=== PATIENT | male | born 1995 | race Two or more races ===

== ENCOUNTER 2025-08-09 16:51 | Emergency (ER) | payer SELFPAY ==
[~2025-08-09] VITALS: Ht 175.3 cm; Wt 72.6 kg
[2025-08-09 16:59] VITALS: TEMP 98.2
[2025-08-09] MEDS ORDERED: LIDOCAINE 1% INJ 50 ML MDV IJ ONE (17:13)
[2025-08-09] MEDS: BACI/NEOM/POLY B OINT PKT 1 UDPKT PACKET TP ONE (18:05)
[2025-08-09] MEDS: LIDOCAINE HCL/PF 1% 30 ML VIAL TP ONE (18:05)
[2025-08-09] MEDS ORDERED: TDAP [DIPH/PERTUSSIS/TET] 0.5 ML VIAL IM ONE (18:10)
[2025-08-09] MEDS ORDERED: CEPH-570 PO (18:13)
[2025-08-09] MEDS ORDERED: IBUP-1490 PO (18:13)
[2025-08-09] MEDS: TDAP [DIPH/PERTUSSIS/TET] 0.5 ML VIAL IM ONE (18:16)
[2025-08-09 18:37] VITALS: BP 125/64; O2SAT 97
== END 2025-08-09 18:37 | disposition home or self-care (01) ==
LOC: ER 16:56
DX: S61.412A Laceration without foreign body of left hand, initial encounter (principal); W26.9XXA Contact with unspecified sharp object(s), initial encounter; Y93.89 Activity, other specified; Y92.89 Other specified places as the place of occurrence of the external cause; Y99.8 Other external cause status
CPT/HCPCS: 12001; 73120; 90471; 90715; 99283; A6403; J3490